=== PATIENT | male | born 1970 | race Two or more races ===

== ENCOUNTER 2018-11-10 21:55 | Inpatient (IN) | payer OTHER ==
[~2018-11-10] VITALS: Ht 177.8 cm; Wt 95.3 kg
== END 2018-11-13 12:49 | disposition home or self-care (01) | DRG 352 ==
LOC: ER 21:55 → SURG 11-11 08:00
PROVIDERS: Specialist
PROC: 0YQ60ZZ Repair Left Inguinal Region, Open Approach (ICD-10-PCS; principal; 2018-11-11 13:00)
DX: K40.90 Unilateral inguinal hernia, without obstruction or gangrene, not specified as recurrent (principal); K57.30 Diverticulosis of large intestine without perforation or abscess without bleeding; N20.0 Calculus of kidney

== ENCOUNTER 2018-11-22 00:34 | Emergency (ER) | payer OTHER ==
[~2018-11-22] VITALS: Ht 154.9 cm; Wt 95.3 kg
== END 2018-11-22 08:43 | disposition home or self-care (01) ==
LOC: ER 00:34
DX: L76.32 Postprocedural hematoma of skin and subcutaneous tissue following other procedure (principal)